=== PATIENT | female | born 1995 | race Caucasian/White ===

== ENCOUNTER 2023-07-28 19:30 | Emergency (ER) | payer SELFPAY ==
[2023-07-28] MEDS ORDERED: Ziprasidone 20 MG VIAL ONE (20:14)
[2023-07-28] MEDS ORDERED: Sterile Water 10 ML ONE (20:15)
[2023-07-28 20:23] LABS: #Basophils 0.1 10x3/uL (0.0-0.2); #Eosinphils 0.1 10x3/uL (0.0-0.5); #Monocytes 1.4 10x3/uL (0.0-1.1); #Neutrophils 12.9 10x3/uL (1.5-8.4); %Basophils 0.6 % (0.0-2.0); %Eosinophils 0.7 % (0.0-6.0); %Lymphocytes 20.4 % (18.0-47.0); %Monocytes 7.4 % (0.0-10.0); %Neutrophils 70.6 % (40.0-75.0); Hematocrit 43.5 % (34.9-44.5); Hemoglobin 14.9 g/dL (12.0-15.5); Mean Corpuscular HGB CONC 34.3 g/dL (32.0-36.0); Mean Corpuscular Hemoglobin 31.3 pg (27.0-33.0); Mean Corpuscular Volume 91.4 fl (81.6-98.3); Mean Platelet Volume 10.4 fl (7.4-10.4); Platelet Count 364 10x3/uL (150-450); Red Blood Cell (RBC) Count 4.76 10x6/uL (3.90-5.03); White Blood Cell (WBC) Count 18.3 10x3/uL (3.5-10.5)
[2023-07-28 20:38] LABS: BHCG - Serum Negative (NEGATIVE); Pregs Control Background? CLEAR/WHITE (CLR/WHITE); Pregs Control Bar Appear? YES (CONTROL BAR)
[2023-07-28 20:42] LABS: Acetaminophen 14 mcg/mL (10.0-30.0); Alcohol 230.5 mg/dL (Less than 10); Salicylate Less than 8.0 mg/dL (15.0-30.0)
[2023-07-28 20:45] LABS: ALT (SGPT) 24 U/L (8-55); AST (SGOT) 26 U/L (5-34); Albumin 4.9 g/dL (3.5-5.0); Alkaline Phosphatase 67 U/L (40-110); Anion Gap 18 mmol/L (10-20); BUN (Urea Nitrogen) 10 mg/dL (7.0-18.7); Bilirubin, Total 0.4 mg/dL (0.2-1.2); Calc. Creatinine Clearance 0 mL/min (70-130); Calcium 9.3 mg/dL (7.8-10.44); Carbon Dioxide 20 mmol/L (22-29); Chloride 107 mmol/L (98-107); Estimated GFR 109; Globulin 3.4 g/dL (2.4-3.5); Glucose 100 mg/dL (70-105); Potassium 3.8 mmol/L (3.5-5.1); Protein, Total 8.3 g/dL (6.0-8.3); Sodium 141 mmol/L (136-145)
[2023-07-28] MEDS ORDERED: Ketorolac Tromethamine 30 MG (1 mL) VIAL ONE (20:48)
[2023-07-28 21:44] LABS: Bilirubin Neg (Negative); Blood, Urine 250 (Negative); Clarity Cloudy (Clear); Glucose, Urine (Dipstick) Normal (Negative); Ketone, Urine 5 mg/dL (Negative); Leukocyte 100 (Negative); Nitrite Negative (Negative); Protein, Urine (Dipstick) 500 mg/dl (Neg-Trace); Specific Gravity, Urine 1.025 (1.005-1.030); Urobilinogen Normal mg/dL (Less than 2); pH, Urine 6.5 (5.0-9.0)
[2023-07-28 21:51] LABS: RBC/HPF Greater than 50 HPF (0-3)
[2023-07-28 21:52] LABS: Bacteria/HPF Rare-Few HPF (None Seen); CAUTI Indications for Culture Alt mental st,lethar; Squamous Epithelial 0-3 HPF (0-3)
[2023-07-28 21:54] LABS: Urine Culture Reflex No No
[2023-07-28 21:57] LABS: Amphetamine Not Detected (NotDetected); Barbiturates Screen Not Detected (NotDetected); Benzodiazepine Screen Not Detected (NotDetected); Cocaine Metabolite Screen Not Detected (NotDetected); Methadone Not Detected (NotDetected); Methamphetamine Not Detected (NotDetected); Opiate Screen Not Detected (NotDetected); Oxycodone Screen Not Detected (NotDetected); Phencyclidine (PCP) Not Detected (NotDetected); THC/Cannabinoid Screen Not Detected (NotDetected); Tricyclic Screen Not Detected (NotDetected)
[2023-07-28] MEDS ORDERED: Acetaminophen 500 MG TAB ONE (22:02)
== END 2023-07-28 22:07 | disposition home or self-care (01) ==
LOC: CSHERS 19:30
DX: N30.91 Cystitis, unspecified with hematuria (principal)
CPT/HCPCS: 80053; 80306; 80307; 81001; 84703; 85025; 93005; 96361; 96374; J1885; J3486

== ENCOUNTER 2023-09-11 22:13 | Emergency (ER) | payer MEDICAID, SELFPAY ==
[2023-09-11 23:14] LABS: #Basophils 0.1 10x3/uL (0.0-0.2); #Eosinphils 0.2 10x3/uL (0.0-0.5); #Monocytes 0.6 10x3/uL (0.0-1.1); #Neutrophils 5.6 10x3/uL (1.5-8.4); %Basophils 0.9 % (0.0-2.0); %Eosinophils 1.8 % (0.0-6.0); %Lymphocytes 30.6 % (18.0-47.0); %Monocytes 6.3 % (0.0-10.0); %Neutrophils 60.2 % (40.0-75.0); Hematocrit 42.7 % (34.9-44.5); Hemoglobin 14.2 g/dL (12.0-15.5); Mean Corpuscular HGB CONC 33.3 g/dL (32.0-36.0); Mean Corpuscular Hemoglobin 31.7 pg (27.0-33.0); Mean Corpuscular Volume 95.3 fl (81.6-98.3); Platelet Count 279 10x3/uL (150-450); RBC Distribution Width 13.4 % (11.5-14.5); Red Blood Cell (RBC) Count 4.48 10x6/uL (3.90-5.03); White Blood Cell (WBC) Count 9.4 10x3/uL (3.5-10.5)
[2023-09-11 23:19] LABS: Bilirubin Neg (Negative); Blood, Urine Negative (Negative); Glucose, Urine (Dipstick) Normal (Negative); Ketone, Urine Negative (Negative); Leukocyte Negative (Negative); Nitrite Negative (Negative); Protein, Urine (Dipstick) 15 mg/dl (Neg-Trace); Urobilinogen Normal mg/dL (Less than 2)
[2023-09-11 23:35] LABS: ALT (SGPT) 14 U/L (8-55); AST (SGOT) 18 U/L (5-34); Albumin 4.5 g/dL (3.5-5.0); Alkaline Phosphatase 49 U/L (40-110); Anion Gap 13 mmol/L (10-20); BUN (Urea Nitrogen) 17 mg/dL (7.0-18.7); Bilirubin, Total 0.2 mg/dL (0.2-1.2); Calc. Creatinine Clearance 0 mL/min (70-130); Calcium 9.2 mg/dL (7.8-10.44); Carbon Dioxide 21 mmol/L (22-29); Chloride 110 mmol/L (98-107); Estimated GFR 120; Globulin 2.7 g/dL (2.4-3.5); Glucose 79 mg/dL (70-105); Lipase 10 U/L (8-78); Potassium 3.5 mmol/L (3.5-5.1); Protein, Total 7.2 g/dL (6.0-8.3); Sodium 140 mmol/L (136-145)
[2023-09-11 23:49] LABS: Bacteria/HPF Rare-Few HPF (None Seen); CAUTI Indications for Culture Pelvic or flank pain; Clarity Slightly Cloudy (Clear); RBC/HPF None Seen HPF (0-3); WBC/HPF 0-3 HPF (0-3)
[2023-09-11 23:50] LABS: Mucous/LPF 3+ LPF (<2+); Urine Culture Reflex No No
[2023-09-12] MEDS ORDERED: metroNIDAZOLE 500 MG TAB ONE (01:35)
[2023-09-12] MEDS ORDERED: Ondansetron PF 4 MG/2 ML Vial ONE (01:39)
[2023-09-12 17:31] LABS: Chlamydia by PCR, Vaginal Swab Not Detected (NotDetected); GC by PCR, Vaginal Swab Not Detected (NotDetected)
== END 2023-09-12 02:00 | disposition home or self-care (01) ==
LOC: CSHERS 22:13
DX: O23.591 Infection of other part of genital tract in pregnancy, first trimester (principal); F17.200 Nicotine dependence, unspecified, uncomplicated; Z3A.01 Less than 8 weeks gestation of pregnancy
CPT/HCPCS: 76856; 80053; 81001; 83690; 84702; 85025; 86850; 86900; 86901; 87480; 87491; 87510; 87591; 87660; 96374; J2405

== ENCOUNTER 2023-09-25 08:44 | Emergency (ER) | payer SELFPAY ==
[2023-09-25 09:48] LABS: Influenza A by NAA Not Detected (NotDetected); Influenza B by NAA Not Detected (NotDetected); SARS-CoV-2 NAA Rapid Test Not Detected (NotDetected)
== END 2023-09-25 10:25 | disposition home or self-care (01) ==
LOC: CSHERS 08:44
DX: O99.511 Diseases of the respiratory system complicating pregnancy, first trimester (principal); J06.9 Acute upper respiratory infection, unspecified; O99.331 Smoking (tobacco) complicating pregnancy, first trimester; F17.200 Nicotine dependence, unspecified, uncomplicated; Z3A.08 8 weeks gestation of pregnancy
CPT/HCPCS: 99283

== ENCOUNTER 2024-02-04 12:52 | Emergency (ER) | payer BC, SELFPAY ==
[2024-02-04 13:29] LABS: Bilirubin Neg (Negative); Blood, Urine Negative (Negative); Clarity Slightly Cloudy (Clear); Glucose, Urine (Dipstick) Normal (Negative); Ketone, Urine Negative (Negative); Leukocyte 25 (Negative); Nitrite Negative (Negative); Protein, Urine (Dipstick) 15 mg/dl (Neg-Trace); Urobilinogen Normal mg/dL (Less than 2); pH, Urine 6.5 (5.0-9.0)
[2024-02-04 13:30] LABS: Pregnancy Test - Urine (BHCG) POSITIVE (Negative); Pregu Control Background? CLEAR/WHITE (CLR/WHITE); Pregu Control Bar Appear? YES (CONTROL BAR)
[2024-02-04 14:38] LABS: CAUTI Indications for Culture Dysuria,urgency,freq; RBC/HPF 0-3 HPF (0-3); WBC/HPF 21-50 HPF (0-3)
[2024-02-04 14:39] LABS: Bacteria/HPF 3+ HPF (None Seen); Mucous/LPF 1+ LPF (<2+); Renal Epithelial 0-3 HPF (None Seen); Transitional Epithelial 0-3 HPF (None Seen)
[2024-02-04 14:40] LABS: Epithelial Cast 0-3 LPF (None Seen)
[2024-02-04 14:41] LABS: Urine Culture Reflex Yes Yes
== END 2024-02-04 14:16 | disposition home or self-care (01) ==
LOC: CSHERS 12:52
DX: N39.0 Urinary tract infection, site not specified (principal)
CPT/HCPCS: 81001; 81025; 87086; 99283

== ENCOUNTER 2024-02-13 09:09 | Day surgery (SDC) | payer OTHER ==
[2024-02-13 09:44] VITALS: BMI 27.4
== END 2024-02-13 10:18 | disposition home or self-care (01) ==
LOC: CSHLD/OP 09:09
PROVIDERS: ATTEND Student in an Organized Health Care Education/Training Program
DX: O36.8120 Decreased fetal movements, second trimester, not applicable or unspecified (principal); Z3A.25 25 weeks gestation of pregnancy; Z79.899 Other long term (current) drug therapy; Z79.82 Long term (current) use of aspirin